=== PATIENT | male | born 1965 | race Caucasian/White ===

== ENCOUNTER 2023-03-01 00:32 | Emergency (ER) | payer OTHER ==
[~2023-03-01] VITALS: Ht 160 cm; Wt 79.4 kg
[2023-03-01 03:04] VITALS: BP 119/80; TEMP 98; O2SAT 99
== END 2023-03-01 03:05 | disposition home or self-care (01) ==
LOC: ER 00:37
DX: M79.661 Pain in right lower leg (principal); I10 Essential (primary) hypertension; F41.9 Anxiety disorder, unspecified
CPT/HCPCS: 93971-TC